=== PATIENT | male | born 1975 | race Caucasian/White ===

== ENCOUNTER 2018-07-25 21:19 | Emergency (ER) | payer OTHER ==
[~2018-07-25] VITALS: Ht 177.8 cm; Wt 80.7 kg
[~2018-07-25 21:19] MED LIST: CEPH500 PO; CYCL10 PO; Cleocin HCl300 MG PO; HYDACE5 PO; IBUP800 PO; LORA1 PO; NAPR500EC PO; OXYACE5T PO; RXCLIN PO; TRAM50 PO; Tylenol325 MG PO
== END 2018-07-25 21:40 | disposition home or self-care (01) ==
LOC: ER 21:19
DX: F10.129 Alcohol abuse with intoxication, unspecified (principal); S50.312A Abrasion of left elbow, initial encounter; Z88.0 Allergy status to penicillin; Z87.891 Personal history of nicotine dependence; X58.XXXA Exposure to other specified factors, initial encounter
CPT/HCPCS: 99282

== ENCOUNTER 2021-11-30 00:10 | Emergency (ER) | payer OTHER | END 2021-11-30 00:53 | disposition left against medical advice (07) | LOC: ER 00:10 | DX: Z53.21 Procedure and treatment not carried out due to patient leaving prior to being seen by health care provider (principal) ==